=== PATIENT | female | born 1995 | race Caucasian/White ===

== ENCOUNTER 2019-01-18 14:33 | Inpatient (IN) | payer OTHER ==
[2019-01-18] MEDS: LACTATED RINGER'S 1,000 ML IV ×2 (16:20→18:14)
[2019-01-18] MEDS ORDERED: CARBOPROST 250 MCG INJ IM ×2 (16:30→22:00)
[2019-01-18] MEDS ORDERED: MISOPROSTOL 200 MCG TAB PR ×2 (16:30→22:00)
[2019-01-18] MEDS ORDERED: OXYTOCIN 30 UNITS/LR 500 ML IV ×2 (16:30→22:00)
[2019-01-18] MEDS ORDERED: CEFAZOLIN 2 GM/50 ML (PMX) 50 ML IVPB (16:30)
[2019-01-18] MEDS ORDERED: METHYLERGONOVINE 0.2 MG INJ IM ×2 (16:30→22:00)
[2019-01-18 17:14] LABS: ADD MAN DIFF? NO
[2019-01-18 17:16] LABS: WHITE BLOOD COUNT 16.6 10^3/ul (4.8-10.8)
[2019-01-18 17:16] LABS: BASOPHIL # 0.1 10^3/ul (0.0-0.1); BASOPHILS % 0.3 % (0.0-2.0); EOSINOPHILS # 0.2 10^3/ul (0.0-0.5); EOSINOPHILS % 1.3 % (0.0-7.0); HEMATOCRIT 32.4 % (37.0-47.0); HEMOGLOBIN 10.7 g/dl (12.0-16.0); LYMPHOCYTES # 2.7 10^3/ul (0.8-2.9); MEAN CORPUSCULAR HEMOGLOBIN 29.6 pg (29.0-33.0); MEAN CORPUSCULAR VOLUME 89.5 fl (82.0-101.0); MEAN PLATELET VOLUME 10.6 fl (7.4-10.4); MONOCYTE # 1.3 10^3/ul (0.3-0.9); MONOCYTES % 7.5 % (0.0-11.0); NEUTROPHIL # 12.2 10^3/ul (1.6-7.5); NEUTROPHILS % 73.5 % (39.0-77.0); PLATELET COUNT 368 10^3/UL (140-415); RED BLOOD COUNT 3.62 10^6/ul (4.20-5.40); RED CELL DISTRIBUTION WIDTH 14.5 % (11.5-14.5)
[2019-01-18 17:36] LABS: INR 0.84; PROTIME 11.6 Sec (11.9-14.9); PT RATIO 0.9
[2019-01-18 17:37] LABS: PARTIAL THROMBOPLASTIN TIME 24.3 Sec (23.0-35.0)
[2019-01-18 18:43] LABS: HEPATITIS B SURFACE ANTIGEN NEGATIVE (NEGATIVE)
[2019-01-18 20:01] LABS: AMPHETAMINE/METHAMPHETAMINE Negative (NEGATIVE); BARBITURATES Negative (NEGATIVE); BENZODIAZEPINES Negative (NEGATIVE); CANNABINOIDS Negative (NEGATIVE); COCAINE Negative (NEGATIVE); OPIATES Negative (NEGATIVE)
[2019-01-18] MEDS ORDERED: morphine SULFATE/PF (10 MG/10 ML) INJ (20:32)
[2019-01-18] MEDS ORDERED: OXYTOCIN 10 UNIT INJ (20:33)
[2019-01-18] MEDS ORDERED: ONDANSETRON 4 MG INJ (20:33)
[2019-01-18 20:42] LABS: RAPID PLASMA REAGIN NONREACTIVE (NR)
[2019-01-18] MEDS ORDERED: MIDAZOLAM 1 MG/ML 2 ML INJ ×2 (20:54→21:18)
[2019-01-18] MEDS ORDERED: FENTAnyl 50 MCG/ML VIAL (21:15)
[2019-01-18] MEDS: KETOROLAC 30 MG INJ IV (21:58)
[2019-01-18] MEDS: IBUPROFEN 800 MG TAB PO (22:00)
[2019-01-18] MEDS: CEFAZOLIN 2 GM/50 ML (PMX) 50 ML IVPB (22:00)
[2019-01-18] MEDS ORDERED: NALOXONE (0.4 MG/ML) INJ IV (22:00)
[2019-01-18] MEDS ORDERED: NACL 0.9% 3 ML SYG IV (22:00)
[2019-01-18] MEDS: OXYTOCIN 30 UNITS/LR 500 ML IV (22:00)
[2019-01-18] MEDS ORDERED: ONDANSETRON 4 MG INJ IV (22:00)
[2019-01-18 22:44] LABS: HEPATITIS C VIRAL ANTIBODY NEGATIVE (NEGATIVE)
[2019-01-18 22:44] LABS: HIV 1&2 ANTIBODY NEGATIVE (NEGATIVE)
[2019-01-18] MEDS: morphine 2 MG INJ IV (22:56)
[2019-01-19] MEDS: DIPHENHYDRAMINE 50 MG INJ IV (01:07)
[2019-01-19] MEDS: OXYTOCIN 30 UNITS/LR 500 ML IV (01:27)
[2019-01-19] MEDS: KETOROLAC 30 MG INJ IV ×2 (04:07→12:41)
[2019-01-19] MEDS: IBUPROFEN 800 MG TAB PO ×3 (06:00→22:02)
[2019-01-19 09:08] LABS: ADD MAN DIFF? NO
[2019-01-19 09:11] LABS: ABNORMAL IP MESSAGE 1; BASOPHILS % 0.2 % (0.0-2.0); EOSINOPHILS # 0.1 10^3/ul (0.0-0.5); EOSINOPHILS % 0.7 % (0.0-7.0); HEMATOCRIT 26.5 % (37.0-47.0); HEMOGLOBIN 9.1 g/dl (12.0-16.0); LYMPHOCYTES # 2.7 10^3/ul (0.8-2.9); LYMPHOCYTES % 14.3 % (15.0-51.0); MEAN CORPUSCULAR HEMOGLOBIN 30.3 pg (29.0-33.0); MEAN CORPUSCULAR HGB CONC 34.3 g/dl (32.0-37.0); MEAN CORPUSCULAR VOLUME 88.3 fl (82.0-101.0); MEAN PLATELET VOLUME 10.5 fl (7.4-10.4); MONOCYTE # 1.5 10^3/ul (0.3-0.9); MONOCYTES % 8.2 % (0.0-11.0); NEUTROPHIL # 14.1 10^3/ul (1.6-7.5); NEUTROPHILS % 75.8 % (39.0-77.0); PLATELET COUNT 292 10^3/UL (140-415); RED CELL DISTRIBUTION WIDTH 14.3 % (11.5-14.5)
[2019-01-19 09:11] LABS: WHITE BLOOD COUNT 18.7 10^3/ul (4.8-10.8)
[2019-01-19 09:19] LABS: POSITIVE DIFF @See below
[2019-01-19] MEDS: morphine 2 MG INJ IV ×3 (10:56→19:54)
[2019-01-19] MEDS: LANOLIN HPA 1 PKT TOP (19:54)
[2019-01-19] MEDS: OXYCODONE/ACETAMINOPHEN (5/325) TAB PO (23:07)
[2019-01-20] MEDS: OXYCODONE/ACETAMINOPHEN (5/325) TAB PO ×5 (03:10→22:31)
[2019-01-20] MEDS: IBUPROFEN 800 MG TAB PO ×3 (05:44→21:36)
[2019-01-20 08:09] LABS: ADD MAN DIFF? NO
[2019-01-20 08:13] LABS: BASOPHILS % 0.3 % (0.0-2.0); EOSINOPHILS # 0.2 10^3/ul (0.0-0.5); EOSINOPHILS % 1.3 % (0.0-7.0); HEMATOCRIT 27.5 % (37.0-47.0); HEMOGLOBIN 9.2 g/dl (12.0-16.0); LYMPHOCYTES # 2.9 10^3/ul (0.8-2.9); LYMPHOCYTES % 19.2 % (15.0-51.0); MEAN CORPUSCULAR HEMOGLOBIN 29.6 pg (29.0-33.0); MEAN CORPUSCULAR HGB CONC 33.5 g/dl (32.0-37.0); MEAN CORPUSCULAR VOLUME 88.4 fl (82.0-101.0); MEAN PLATELET VOLUME 10.3 fl (7.4-10.4); MONOCYTE # 1.3 10^3/ul (0.3-0.9); MONOCYTES % 8.5 % (0.0-11.0); NEUTROPHIL # 10.5 10^3/ul (1.6-7.5); NEUTROPHILS % 69.9 % (39.0-77.0); PLATELET COUNT 305 10^3/UL (140-415); RED BLOOD COUNT 3.11 10^6/ul (4.20-5.40); RED CELL DISTRIBUTION WIDTH 14.4 % (11.5-14.5)
[2019-01-20] MEDS: FERROUS SULFATE (EC) 325 MG TAB PO ×2 (08:48→21:36)
[2019-01-20] MEDS ORDERED: BISACODYL 10 MG SUPP PR (17:30)
[2019-01-20] MEDS: MAGNESIUM HYDROXIDE 30ML CUP PO (17:46)
[2019-01-21] MEDS: OXYCODONE/ACETAMINOPHEN (5/325) TAB PO ×3 (03:20→13:07)
[2019-01-21] MEDS: IBUPROFEN 800 MG TAB PO (05:42)
[2019-01-21] MEDS: FERROUS SULFATE (EC) 325 MG TAB PO (10:28)
== END 2019-01-21 13:15 | disposition home or self-care (01) | DRG 788 ==
LOC: OBT 14:33 → PP1 01-19 00:14 → L-D 14:34 → OBT 15:15 → L-D 15:15
PROVIDERS: Obstetrics & Gynecology
PROC: 10D00Z1 Extraction of Products of Conception, Low, Open Approach (ICD-10-PCS; principal; 2019-01-18 19:00)
DX: O65.5 Obstructed labor due to abnormality of maternal pelvic organs (principal); O34.211 Maternal care for low transverse scar from previous cesarean delivery; O99.333 Smoking (tobacco) complicating pregnancy, third trimester; Z3A.38 38 weeks gestation of pregnancy; Z37.0 Single live birth
CPT/HCPCS: 80307; 85025; 85610; 85730; 86592; 86703; 86803; 86850; 86900; 86901; 87340; 99464